=== PATIENT | female | born 1995 | race Caucasian/White ===

== ENCOUNTER → 2018-03-27 | Outpatient (REF) | payer MEDICARE, OTHER ==
[2018-03-27 14:06] LABS: APPEARANCE, URINE HAZY (CLEAR); BACTERIA, URINE AUTO 1+ (NEGATIVE); BILIRUBIN, URINE AUTO NEGATIVE (NEGATIVE); BLOOD, URINE BLOOD 2+ (NEGATIVE); COLOR, URINE YELLOW (YELLOW); GLUCOSE, URINE (UA) AUTO NEGATIVE (NEGATIVE); KETONE, URINE AUTO NEGATIVE (NEGATIVE); LEUKOCYTE ESTERASE, URINE AUTO 3+ (NEGATIVE); MUCUS, URINE SMALL (NEGATIVE); NITRITE, URINE AUTO NEGATIVE (NEGATIVE); PROTEIN, URINE AUTO NEGATIVE (NEGATIVE); RBC, URINE AUTO 35 /HPF (0-3); SPECIFIC GRAVITY URINE AUTO 1.016 (1.002-1.035); SQUAMOUS EPITHELIAL CELL UR AU 2 /HPF (0-6); UROBILINOGEN, URINE AUTO 0.2 mg/dL (0.0-2.0); WBC, URINE AUTO TNTC /HPF (0-3)
== END ==
LOC: M LAB REF 12:59
DX: N39.0 Urinary tract infection, site not specified (principal)
CPT/HCPCS: 81001

== ENCOUNTER 2018-06-24 16:36 | Emergency (ER) | payer OTHER ==
[2018-06-24] MEDS: KETOROLAC 30 MG/ML VIAL (J1885) IV (17:56)
[2018-06-24] MEDS: ONDANSETRON 4MG/2ML VIAL (J2405) IV (17:56)
[2018-06-24] MEDS: NS 1,000 ML IV (17:57)
[2018-06-24 18:08] LABS: ANION GAP 6 MEQ/L (8-16); BLOOD UREA NITROGEN 14 MG/DL (7-18); CALCIUM LEVEL 9.1 MG/DL (8.5-10.1); CARBON DIOXIDE LEVEL 29 MEQ/L (21-32); CHLORIDE LEVEL 110 MEQ/L (98-107); CREATININE FOR GFR 0.75 MG/DL (0.55-1.30); GLOMERULAR FILTRATION RATE > 60.0 (>60); GLUCOSE, FASTING 96 MG/DL (70-100); POTASSIUM SERUM 4.2 MEQ/L (3.5-5.1); SODIUM LEVEL 145 MEQ/L (136-145)
== END 2018-06-24 18:58 | disposition home or self-care (01) ==
LOC: M ED 16:36
DX: K52.9 Noninfective gastroenteritis and colitis, unspecified (principal); K21.9 Gastro-esophageal reflux disease without esophagitis; F32.9 Major depressive disorder, single episode, unspecified; M54.9 Dorsalgia, unspecified; Z79.899 Other long term (current) drug therapy
CPT/HCPCS: J2405

== ENCOUNTER → 2018-07-18 | Outpatient (REF) | payer OTHER ==
[2018-07-18 21:38] LABS: APPEARANCE, URINE HAZY (CLEAR); BACTERIA, URINE AUTO 1+ (NEGATIVE); BILIRUBIN, URINE AUTO NEGATIVE (NEGATIVE); BLOOD, URINE BLOOD NEGATIVE (NEGATIVE); COLOR, URINE YELLOW (YELLOW); GLUCOSE, URINE (UA) AUTO NEGATIVE (NEGATIVE); KETONE, URINE AUTO NEGATIVE (NEGATIVE); LEUKOCYTE ESTERASE, URINE AUTO 1+ (NEGATIVE); NITRITE, URINE AUTO POSITIVE (NEGATIVE); PROTEIN, URINE AUTO NEGATIVE (NEGATIVE); RBC, URINE AUTO 1 /HPF (0-3); SQUAMOUS EPITHELIAL CELL UR AU 1 /HPF (0-6); UROBILINOGEN, URINE AUTO 0.2 mg/dL (0.0-2.0); WBC, URINE AUTO 34 /HPF (0-3)
== END ==
LOC: M LAB REF 18:31
DX: N39.0 Urinary tract infection, site not specified (principal)

== ENCOUNTER → 2018-08-21 | Outpatient (REF) | payer OTHER ==
[2018-08-21 18:09] LABS: HEMATOCRIT 39.4 % (36.0-47.0); MEAN CORPUSCULAR HEMOGLOBIN 30.9 pg (27.0-33.0); MEAN CORPUSCULAR VOLUME 93.6 fl (80.0-96.0); PLATELET COUNT, AUTOMATED 233 10^3/uL (150-450); RED BLOOD COUNT 4.21 10^6/uL (4.00-5.40); WHITE BLOOD COUNT 7.7 10^3/uL (4.0-10.0)
[2018-08-21 18:42] LABS: HCG, SERUM QUANTITATIVE 8001 MIU/ML
[2018-08-22 11:31] LABS: RUBELLA IgG QUALITATIVE IMMUNE (IMMUNE)
[2018-08-22 11:59] LABS: HEPATITIS C VIRUS ABY INDEX 0.1 INDEX (<0.8)
[2018-08-22 12:00] LABS: HIV 1&2 SCREEN CENTAUR NEGATIVE (NEGATIVE)
[2018-08-22 14:01] LABS: HBsAg Prenatal NEGATIVE (NEGATIVE)
== END ==
LOC: M LAB REF 17:05
DX: O36.80X0 Pregnancy with inconclusive fetal viability, not applicable or unspecified (principal); Z32.01 Encounter for pregnancy test, result positive
CPT/HCPCS: 86762

== ENCOUNTER 2018-10-09 11:34 | Emergency (ER) | payer OTHER, MEDICAID ==
[~2018-10-09] VITALS: Ht 167.6 cm; Wt 61.8 kg
[~2018-10-09 11:34] MED LIST: ESCI10TA2; GABA-845; NUVAMIS2; OMEP40CA2; ZOFR4TAB14 PO
[2018-10-09] MEDS ORDERED: PRENTAB55 PO (11:40)
[2018-10-09] MEDS ORDERED: METOCLOPRAMIDE INJ 10MG/2ML VIAL (J2765) IV ONE (13:00)
[2018-10-09] MEDS ORDERED: NS 1,000 ML IV ONE (13:00)
[2018-10-09 13:30] LABS: BASO # 0.1 10^3/uL (0.0-0.2); BASO % 0.6 % (0.0-1.0); EOS # 0.2 10^3/uL (0.0-0.50); EOS % 1.8 % (0.0-3.0); HEMATOCRIT 35.7 % (36.0-47.0); HEMOGLOBIN 12.1 g/dl (12.0-15.5); LYMPH # 1.7 10^3/uL (1.5-6.5); LYMPH % 19.5 % (24.0-44.0); MEAN CORPUSCULAR HEMOGLOBIN 31.8 pg (27.0-33.0); MEAN CORPUSCULAR HGB CONC 33.9 g/dl (32.0-36.5); MEAN CORPUSCULAR VOLUME 93.9 fl (80.0-96.0); MONO # 0.5 10^3/uL (0.0-0.8); NEUTROPHILS # 6.1 10^3/uL (1.8-7.7); NEUTROPHILS % 71.7 % (36.0-66.0); PLATELET COUNT, AUTOMATED 195 10^3/uL (150-450); WHITE BLOOD COUNT 8.5 10^3/uL (4.0-10.0)
[2018-10-09 13:53] LABS: ALBUMIN 3.3 GM/DL (3.2-5.2); ALT/SGPT 11 U/L (12-78); BLOOD UREA NITROGEN 12 MG/DL (7-18); CALCIUM LEVEL 8.7 MG/DL (8.5-10.1); CARBON DIOXIDE LEVEL 22 MEQ/L (21-32); CHLORIDE LEVEL 107 MEQ/L (98-107); CREATININE FOR GFR 0.56 MG/DL (0.55-1.30); GLOMERULAR FILTRATION RATE > 60.0 (>60); GLUCOSE, FASTING 78 MG/DL (70-100); LIPASE 109 U/L (73-393); POTASSIUM SERUM 3.6 MEQ/L (3.5-5.1); SODIUM LEVEL 137 MEQ/L (136-145); TOTAL PROTEIN 6.8 GM/DL (6.4-8.2)
--- NOTE | 2018-10-09 14:49 | REP ---
Emergency first trimester obstetric sonography: History: Nausea vomiting diarrhea. Unable to get heart tones. Findings: Transabdominal scanning confirms the presence of a viable single intrauterine gestation. [place]-rump length of the embryonic pole is 68 mm. This corresponds to a 94-bcac-7-day gestational age estimate. heart rate is recorded at 152 beats per minute. No subchorionic hemorrhage is seen. motion is observed. An anterior placenta is seen without evidence of placenta previa. No extrauterine abnormalities observed. No gross anomaly. Impression: Viable single intrauterine gestation at 13 weeks 0 days by crown-rump length. ROGER by sonography April 16, 2019. No complication is identified. Electronically Signed by Jimi Olvera MD 10/09/2018 02:41 P
[2018-10-09] MEDS ORDERED: REGL10TA6 PO (14:50)
[2018-10-09] MEDS ORDERED: MACR100C43 PO (14:56)
[2018-10-09] MEDS ORDERED: NITROFURANTOIN (MACROBID) 100 MG CAP PO ONE (15:00)
[2018-10-09 15:07] VITALS: BP 109/55
== END 2018-10-09 15:18 | disposition home or self-care (01) ==
LOC: M ED 11:34
DX: O21.9 Vomiting of pregnancy, unspecified (principal); O23.41 Unspecified infection of urinary tract in pregnancy, first trimester; O99.611 Diseases of the digestive system complicating pregnancy, first trimester; K21.9 Gastro-esophageal reflux disease without esophagitis; O99.341 Other mental disorders complicating pregnancy, first trimester; F32.9 Major depressive disorder, single episode, unspecified; F41.9 Anxiety disorder, unspecified; Z3A.13 13 weeks gestation of pregnancy; Z79.899 Other long term (current) drug therapy
CPT/HCPCS: 76801; 80053; 81001; 83690; 85025; 87086; 96374; 99284; J2765

== ENCOUNTER → 2018-10-31 | Outpatient (REF) | payer OTHER, MEDICAID ==
[~2018-10-31] MED LIST changes: +MACR100C43 PO; +PRENTAB55 PO; +REGL10TA6 PO
[2018-10-31 15:43] LABS: CHLAMYDIA DNA AMPLIFICATION NEGATIVE (NEGATIVE); GC DNA AMPLIFICATION NEGATIVE (NEGATIVE)
== END ==
LOC: M LAB REF 13:03
PROVIDERS: ATTEND Advanced Practice Midwife
DX: Z34.82 Encounter for supervision of other normal pregnancy, second trimester (principal); Z3A.00 Weeks of gestation of pregnancy not specified

== ENCOUNTER → 2018-11-16 | Outpatient (CLI) | payer OTHER, MEDICAID ==
--- NOTE | 2018-11-16 19:06 | REP ---
Obstetric ultrasound for anatomy: There is a single intrauterine gestation in a breech presentation. There is movement and cardiac activity. The heart rate is 144 beats minute. The placenta is anterior. There is no placenta previa or abruptio. The placenta is grade zero. The amniotic fluid volume subjectively is normal. The cervix measures 4.3 cm length. Gestational age by today's ultrasound is 18 weeks 2 days/ROGER 04/17/2019. Gestational age by the first ultrasound is 18 weeks 3 days/ROGER 04/16/2019. Gestational age by LMP is 18 weeks 3 days/ROGER 04/16/2019. weight is 232 grams/0 pounds, 8 ounces. This is the 42nd percentile for 18 weeks 3 days. The following anatomic structures are identified and are unremarkable: Cavum septum pellucidum, cerebellum, upper lip, diaphragm, stomach, cord insertion, three-vessel cord, kidneys, bladder and upper lower extremities. There is a cyst in the right choroid plexus and the cyst in the left choroid plexus. Suboptimally demonstrated because of position are the facial profile, face, lungs, four-chamber view of the heart, cardiac right and left ventricular outflow tracts and the sacral portion of the spine. A followup study dedicated to these structures might be considered. Electronically Signed by Chris Watkins MD 11/16/2018 06:58 P
== END ==
LOC: M RAD 15:49
PROVIDERS: ATTEND Advanced Practice Midwife
DX: Z36.89 Encounter for other specified antenatal screening (principal); O99.89 Other specified diseases and conditions complicating pregnancy, childbirth and the puerperium; G93.0 Cerebral cysts; Z3A.18 18 weeks gestation of pregnancy

== ENCOUNTER → 2018-11-24 | Outpatient (REF) | payer OTHER, MEDICAID ==
[2018-11-24 14:03] LABS: AMORPHOUS SEDIMENT SMALL (NEGATIVE); APPEARANCE, URINE CLOUDY (CLEAR); BACTERIA, URINE AUTO NEGATIVE (NEGATIVE); BILIRUBIN, URINE AUTO NEGATIVE (NEGATIVE); BLOOD, URINE BLOOD NEGATIVE (NEGATIVE); COLOR, URINE YELLOW (YELLOW); GLUCOSE, URINE (UA) AUTO NEGATIVE (NEGATIVE); KETONE, URINE AUTO NEGATIVE (NEGATIVE); LEUKOCYTE ESTERASE, URINE AUTO 2+ (NEGATIVE); MUCUS, URINE SMALL (NEGATIVE); NITRITE, URINE AUTO NEGATIVE (NEGATIVE); PROTEIN, URINE AUTO NEGATIVE (NEGATIVE); RBC, URINE AUTO 2 /HPF (0-3); SPECIFIC GRAVITY URINE AUTO 1.018 (1.002-1.035); SQUAMOUS EPITHELIAL CELL UR AU 9 /HPF (0-6); WBC, URINE AUTO 3 /HPF (0-3)
== END ==
LOC: M LAB REF 13:25
PROVIDERS: ATTEND Obstetrics & Gynecology
DX: N39.0 Urinary tract infection, site not specified (principal)

== ENCOUNTER → 2018-12-07 | Outpatient (CLI) | payer OTHER, MEDICAID ==
--- NOTE | 2018-12-08 09:08 | REP ---
Obstetric ultrasound for follow-up of anatomy: On the prior study dated 11/16/2018 the following anatomic structures cannot be identified because of position: Facial profile, face, lungs, four-chamber view of the heart, cardiac right and left ventricular outflow tracts and sacral portion of the spine. On the study today the facial profile, face, upper lip, lungs, four-chamber view of the heart, cardiac right and left ventricular outflow tracts, and sacral portion of the spine are all adequately demonstrated and are unremarkable. The previous choroid plexus cysts have resolved. The remainder of the anatomy today is unremarkable and unchanged from the prior study. There are no anomalies. There is a single intrauterine gestation in a transverse lie with the head to the maternal left and then changing to a breech presentation. There is motion and cardiac activity. The heart rate is 160 beats per minute. The placenta is anterior. There is no placenta previa or abruptio. The placenta is grade 1 maturity. The amniotic fluid volume subjectively is normal. The cervix measures 3.3 cm length. By today's ultrasound the gestational age is 20-week 6 days/ROGER 04/20/2019. By the first ultrasound gestational age is 21 weeks 3 days/ROGER 04/16/2019. By LMP gestational age is 21 weeks 3 days/ROGER 04/16/2019. weight is 390 grams/0 pounds, 13 ounces. This is the 32nd percentile for 21 weeks 3 days. Electronically Signed by Chris Watkins MD 12/08/2018 09:00 A
== END ==
LOC: M RAD 17:31
PROVIDERS: ATTEND Advanced Practice Midwife
DX: O32.2XX0 Maternal care for transverse and oblique lie, not applicable or unspecified (principal); Z36.2 Encounter for other antenatal screening follow-up; Z3A.21 21 weeks gestation of pregnancy

== ENCOUNTER → 2018-12-24 | Outpatient (REF) | payer OTHER, MEDICAID ==
[2018-12-24 16:25] LABS: INFLUENZA A AMPLIFICATION NEGATIVE (NEGATIVE); INFLUENZA B AMPLIFICATION NEGATIVE (NEGATIVE)
== END ==
LOC: M LAB REF 15:04
PROVIDERS: ATTEND Physician Assistant
DX: J11.1 Influenza due to unidentified influenza virus with other respiratory manifestations (principal)

== ENCOUNTER → 2019-01-25 | Outpatient (CLI) | payer OTHER, MEDICAID ==
[2019-01-25 13:12] LABS: HEMATOCRIT 31.5 % (36.0-47.0); HEMOGLOBIN 10.7 g/dl (12.0-15.5); MEAN CORPUSCULAR HEMOGLOBIN 32.7 pg (27.0-33.0); MEAN CORPUSCULAR VOLUME 96.3 fl (80.0-96.0); PLATELET COUNT, AUTOMATED 198 10^3/uL (150-450); RED BLOOD COUNT 3.27 10^6/uL (4.00-5.40); WHITE BLOOD COUNT 12.6 10^3/uL (4.0-10.0)
== END ==
LOC: M SMT 10:51
PROVIDERS: ATTEND Advanced Practice Midwife
DX: Z34.82 Encounter for supervision of other normal pregnancy, second trimester (principal); Z3A.00 Weeks of gestation of pregnancy not specified

== ENCOUNTER → 2019-02-27 | Outpatient (CLI) | payer OTHER, MEDICAID ==
--- NOTE | 2019-02-27 10:38 | REP ---
REASON: Growth and placenta assessment. Multiple ultrasonographic image of the gravid uterus show a single living intrauterine gestation in the cephalic presentation. Doppler interrogation of the heart shows the heart rate of 134 beats per minute. The placenta is anterior and not low-lying. There is no evidence of a placental or pramod-placental abnormality. The placenta has an ultrasonographic appearance of grade 2. The subjective amniotic fluid volume is within normal limits. The cervix measures 4.2 cm in length and is closed. Evaluation of the maternal adnexal spaces showed no abnormalities. Doppler interrogation of the umbilical cord shows an A/B ratio of 2.48. This is within the normal range. The calculated amniotic fluid index is 18.6 with an expected range 8.3 to 24.5. BPD 8.9 cm = 35 weeks 6 days HC 31.0 cm = 34 weeks 5 days AC 29.5 cm = 33 weeks 4 days FL 6.1 cm = 31 weeks 4 days The estimated weight is 2168 grams, which is at the 49th percentile for a 46-kued-1-day gestational age. Full anatomical screening was performed on a prior exam. IMPRESSION: Single living intrauterine gestation as described above with an estimated gestational age of 33 weeks 6 days via composite criteria and an estimated date of delivery of 04/11/2019 by today's exam. Electronically Signed by Wilfredo Hoffman DO 02/27/2019 10:48 A
[2019-02-27 11:57] LABS: CHLAMYDIA DNA AMPLIFICATION NEGATIVE (NEGATIVE); GC DNA AMPLIFICATION NEGATIVE (NEGATIVE)
== END ==
LOC: M RAD 09:22
PROVIDERS: ATTEND Advanced Practice Midwife
DX: Z34.83 Encounter for supervision of other normal pregnancy, third trimester (principal); Z3A.33 33 weeks gestation of pregnancy
CPT/HCPCS: 76816; 76820; 87491; 87591; G0123

== ENCOUNTER → 2019-03-20 | Outpatient (REF) | payer OTHER, MEDICAID ==
[~2019-03-20] MED LIST changes: +ACET-683 PO; +CLAR10CA3 PO; +IBUP80TA PO; +LEXA1TAB PO; +OMEP40CA2 PO; +TUMS500C PO
== END ==
LOC: M LAB REF 16:56
PROVIDERS: ATTEND Advanced Practice Midwife
DX: Z34.83 Encounter for supervision of other normal pregnancy, third trimester (principal); Z3A.00 Weeks of gestation of pregnancy not specified

== ENCOUNTER 2019-03-26 17:42 | Inpatient (IN) | payer OTHER, MEDICAID ==
[~2019-03-26] VITALS: Ht 167.6 cm; Wt 68.9 kg
[~2019-03-26 17:42] MED LIST changes: -ACET-683 PO; -CLAR10CA3 PO; -IBUP80TA PO; -LEXA1TAB PO; -OMEP40CA2 PO; -TUMS500C PO
[2019-03-26 17:56] VITALS: BP 124/63
[2019-03-26] MEDS ORDERED: PENICILLIN G POTASSIUM IV 5 MU in D5W MINI-BAG PLUS 100 ML IV STA (18:06)
[2019-03-26] MEDS ORDERED: LACTATED RINGER'S 1000 ML IV STA (18:06)
[2019-03-26] MEDS ORDERED: TUMS500C PO (18:07)
[2019-03-26] MEDS ORDERED: CLAR10CA3 PO (18:07)
[2019-03-26] MEDS ORDERED: LEXA1TAB PO (18:07)
[2019-03-26] MEDS ORDERED: OMEP40CA2 PO (18:07)
[2019-03-26 18:33] VITALS: BP 126/72
[2019-03-26 18:35] LABS: HEMATOCRIT 31.2 % (36.0-47.0); HEMOGLOBIN 10.5 g/dl (12.0-15.5); MEAN CORPUSCULAR HEMOGLOBIN 30.9 pg (27.0-33.0); MEAN CORPUSCULAR HGB CONC 33.7 g/dl (32.0-36.5); MEAN CORPUSCULAR VOLUME 91.8 fl (80.0-96.0); PLATELET COUNT, AUTOMATED 216 10^3/uL (150-450); WHITE BLOOD COUNT 14.8 10^3/uL (4.0-10.0)
[2019-03-26] MEDS ORDERED: FENTANYL 2MCG/ML ROPIVACAINE 0.2% IN 0.9% NACL 100ML IVBAG As Ordered ONE (18:39)
[2019-03-26 18:56] VITALS: BP 116/65
--- NOTE | 2019-03-26 19:52 | HPE ---
DATE OF ADMISSION: 03/26/2019 Patient is a 23-year-old female who is a 2, para 0-0-1-0 at 37 weeks gestation with an estimated date of confinement (EDC) of 04/16/2019 based off of her last menstrual period (LMP) and consistent with her first-trimester ultrasound. Patient initiated care in her first trimester with [facility]. Patient's has been complicated by depression, which she is taking Lexapro 10 mg for. She presents to labor and delivery with complaints of contractions every 3 minutes. She reports active movement. She denies leaking of fluid or vaginal bleeding. PAST MEDICAL HISTORY: 1. Gastroesophageal reflux disease (GERD). 2. Anxiety. SURGICAL HISTORY: Tonsillectomy. FAMILY HISTORY: Lung cancer and Alzheimer's. SOCIAL HISTORY: She is currently a student in college. She is . The father of the baby and her are together. She has no history of abuse. Patient denies any history of ever being a smoker, illicit drug use, or alcohol use or abuse. PAST PREGNANCIES: In 2010, she had a termination. LABORATORIES: Blood type is A positive with an antibody screen that is negative. Her hemoglobin and hematocrit in her first trimester were 13.0 and 39.4 with platelets of 233. Rubella is immune. Her VDRL is nonreactive. Her urine screen had no growth. Hepatitis B surface antigen is negative. HIV is negative. Gonorrhea and chlamydia are negative. Hepatitis C is nonreactive. She had a panorama done, which is NIPT testing, that showed a female, low risk for aneuploidy screening. Her 1-hour glucose tolerance test was 111 with a hemoglobin and hematocrit of 10.7 and 31.5 with platelets of 198. Her GBS is positive. ALLERGIES: No known drug allergies. CURRENT MEDICATIONS: - vitamins - Lexapro 10 mg - omeprazole 40 mg - Claritin 10 mg PHYSICAL EXAMINATION: GENERAL: Alert and oriented times three. RESPIRATORY: Regular rate with no use of accessory muscles. ABDOMEN: Gravid. Palpates mild with contractions. Cephalic presentation of the fetus noted via Milo's maneuver and vaginal exam. LOWER EXTREMITIES: Generalized edema. No clonus. heart rate 130, moderate variability. Positive accelerations. No decelerations. Contractions are every 3-4 minutes. Sterile vaginal exam: 4/100/-1, anterior, scant show. VITAL SIGNS: Blood pressure 126/72, heart rate 82, respiratory rate 18, temperature 98.1. ASSESSMENT: Intrauterine (IUP) at 37 weeks gestation, GBS positive, active labor, category 1 heart rate tracing. PLAN: Admit patient to labor and delivery. Labs and IV per unit protocol. Lactated Ringer's 800 mL bolus prior to epidural. Anesthesia consult per patient's request. Clear liquid diet. Anticipate cervical change and spontaneous vaginal delivery.
[2019-03-26] MEDS ORDERED: OXYTOCIN 30 UNITS IN 0.9% NaCl 500ML IV BAG (J2590) As Ordered ONE (20:18)
[2019-03-26] MEDS ORDERED: LR 1,000 ML IV SCH (20:18)
--- NOTE | 2019-03-26 20:21 | IPNPDOC ---
Obstetrical Progress Note Date of Service Mar 26, 2019 Subjective Patient reports she is more comfortable with her epidural. Objective Vital Signs Date Time Temp Pulse Resp B/P (MAP) Pulse Ox O2 Delivery O2 Flow Rate FiO2 03/26/19 18:56 84 18 116/65 (82) 100 03/26/19 18:33 98.1 Assessment Heart Rate (FHR): 135 Variability: Moderate Accelerations: Positive Decelerations: None Heart Rate Tracing: Category I Tocometer Contractions: Yes Frequency: every 2-5 min. Sterile Vaginal Examination Dilation: 5 cm Effacement (%): 100% Station: -1 Postion/Presentation: Cephalic presentation Assessment and Plan Status: Reassuring Group B Streptococcus: Positive Anticipate: Vaginal Delivery Additional Comments IV Pitocin to be started after discussing with patient. She and SO agree with plan. Order for IV Pitocin to be started. ERASMO LABOY CNM Mar 26, 2019 20:21
[2019-03-26] MEDS ORDERED: OXYTOCIN DRIP 30 UNITS in APPROPRIATE DILUENT 1 EA IV SCH (20:30)
[2019-03-26] MEDS ORDERED: REFRIGERATOR IV KEYS XX PRN (20:45)
[2019-03-26] MEDS ORDERED: ONDANSETRON 4MG/2ML VIAL (J2405) IV PRN (20:45)
[2019-03-26] MEDS ORDERED: diphenhydrAMINE INJ 50MG/ML VIAL (J1200) IV PRN (20:45)
[2019-03-26] MEDS ORDERED: LACTATED RINGER'S 1000 ML IV PRN (20:45)
[2019-03-26] MEDS ORDERED: ePHEDrine SULFATE 25 MG/5 ML(5MG/ML) SYRINGE IV PRN (20:45)
[2019-03-26] MEDS ORDERED: FENTANYL/ROPIVACAINE/NACL BAG 100 ML EPIDURAL SCH (20:45)
[2019-03-26] MEDS ORDERED: NALOXONE INJ 0.4 MG/1 ML VIAL (J2310) IV PRN (20:45)
[2019-03-26] MEDS ORDERED: EPIDURAL/PCA KEYS XX PRN (20:45)
[2019-03-26] MEDS ORDERED: EPIDURAL COMMENT XX SCH (20:45)
[2019-03-26] MEDS ORDERED: PENICILLIN G POTASSIUM IV 2.5 MU in APPROPRIATE DILUENT 1 EA IV SCH (23:00)
[2019-03-27] MEDS ORDERED: OXYTOCIN DRIP 30 UNITS in APPROPRIATE DILUENT 1 EA IV SCH (07:08)
[2019-03-27] MEDS ORDERED: METHYLERGONOVINE MALEATE 0.2 MG TAB PO PRN (07:15)
[2019-03-27] MEDS ORDERED: DIBUCAINE 1% OINTMENT 30GM TOP PRN (07:15)
[2019-03-27] MEDS ORDERED: RHOGAM 300 MCG (1500 IU) INJ (J2790) IM SCH (07:15)
[2019-03-27] MEDS ORDERED: ACETAMINOPHEN 500 MG TAB PO PRN (07:15)
[2019-03-27] MEDS ORDERED: ANUSOL HC CREAM 30GM TOP PRN (07:15)
[2019-03-27] MEDS ORDERED: IBUPROFEN 800 MG TAB PO PRN (07:15)
[2019-03-27] MEDS ORDERED: MEASLES,MUMPS,RUBELLA VACCINE INJ (MMR-II) (90707) SC SCH (07:15)
[2019-03-27] MEDS ORDERED: DOCUSATE SODIUM 100 MG CAP PO PRN (07:15)
[2019-03-27] MEDS ORDERED: ACETAMINOPHEN TAB 650MG DOSE (2X325MG) PO PRN (07:15)
[2019-03-27] MEDS: IBUPROFEN 600 MG TAB PO PRN ×2 (07:58→14:38)
[2019-03-27 08:55] VITALS: BP 113/59
[2019-03-27] MEDS: PRENATAL VITAMINS CHEWABLE TABLET PO SCH (09:00)
--- NOTE | 2019-03-27 11:16 | DN ---
DATE OF DELIVERY: 03/27/2019 TIME: 0551 hours STATUS: Delivered, spontaneous vaginal delivery. ANESTHESIA: Epidural. PROVIDER: Angelica Franco CNM, [facility] ESTIMATED BLOOD LOSS: 500 mL. FINDINGS: Female, 6 pounds 1 ounce, 2740 grams, scores 9 and 9, nuchal times one tight and cord around the body. The patient is a 23-year-old female, who is now a 2, para 1-0-1-1 at 37 weeks 1 day gestation who presented to labor and delivery in active labor. She received an epidural for pain management. She progressed to fully dilated at 0431 hours and pushed to a living female at 0551 hours in the CONCHIS position with restitution to LOT. A nuchal cord times one tight was noted. The anterior shoulder delivered with ease and the corpus immediately followed. The baby was placed on the maternal abdomen, active and crying with stimulation. The cord was clamped times two after pulsations ceased and cut by the father of the baby. The placenta delivered spontaneously and was intact at 0605 hours. Uterine hemostasis was achieved via rapid infusion of IV Pitocin and fundal massage. The perineum, cervix, vagina were inspected and found to have a left labial laceration one-third of the anterior and extended into a left vaginal wall laceration. This was repaired with a 3-[address]-1 and a 4-0 Vicryl Rapide RB-1. Mother plans on breast feeding and breast fed in the room successfully. Mother is naming her baby Mile. Both mother and baby are in stable condition. All counts of instruments, sutures and sponges were correct. [facility]
[2019-03-27] MEDS ORDERED: OMEPRAZOLE 20 MG CAP PO SCH (17:00)
[2019-03-27] MEDS ORDERED: ESCITALOPRAM OXALATE 10 MG TAB (LEXAPRO) PO SCH (17:00)
[2019-03-27 18:05] VITALS: BP 115/64
[2019-03-28 06:53] VITALS: BP 113/65
[2019-03-28] MEDS ORDERED: ACET-683 PO (07:04)
[2019-03-28] MEDS ORDERED: IBUP80TA PO (07:04)
[2019-03-28] MEDS: PRENATAL VITAMINS CHEWABLE TABLET PO SCH (08:06)
[2019-03-28] MEDS: IBUPROFEN 600 MG TAB PO PRN (08:07)
== END 2019-03-28 10:50 | disposition home or self-care (01) | DRG 807 ==
LOC: M LDO 17:42 → M LDI 18:07 → M OBS 03-27 08:45
PROVIDERS: ADMIT Advanced Practice Midwife; ATTEND Advanced Practice Midwife
PROC: 10E0XZZ Delivery of Products of Conception, External Approach (ICD-10-PCS; principal; 2019-03-27)
PROC: 0HQ9XZZ Repair Perineum Skin, External Approach (ICD-10-PCS; 2019-03-27)
DX: O70.0 First degree perineal laceration during delivery (principal); Z37.0 Single live birth; Z3A.37 37 weeks gestation of pregnancy; F32.9 Major depressive disorder, single episode, unspecified; O99.820 Streptococcus B carrier state complicating pregnancy; O99.344 Other mental disorders complicating childbirth; O69.89X0 Labor and delivery complicated by other cord complications, not applicable or unspecified

== ENCOUNTER → 2020-03-27 | Outpatient (REF) | payer OTHER ==
[~2020-03-27] MED LIST changes: +ACET-683 PO; +CLAR10CA3 PO; +IBUP80TA PO; +LEXA1TAB PO; -OMEP40CA2; +OMEP40CA97; +OMEP40CA97 PO; +TUMS500C PO
== END ==
LOC: M LAB REF 16:39
PROVIDERS: ATTEND Physician Assistant
DX: R30.0 Dysuria (principal)

== ENCOUNTER → 2020-09-03 | Outpatient (CLI) | payer SELFPAY | LOC: M LABSMTC 12:18 | PROVIDERS: ATTEND Pediatrics | DX: Z20.828 Contact with and (suspected) exposure to other viral communicable diseases (principal) ==

== ENCOUNTER → 2021-01-13 | Outpatient (REF) | payer OTHER ==
[~2021-01-13] MED LIST changes: +ESCI10TA16; -ESCI10TA2; +ONDA-83; +ONDA4TAB6 PO
[2021-01-13 13:54] LABS: HEMATOCRIT 42.2 % (36.0-47.0); HEMOGLOBIN 13.9 g/dl (12.0-15.5); MEAN CORPUSCULAR HEMOGLOBIN 31.4 pg (27.0-33.0); MEAN CORPUSCULAR HGB CONC 32.9 g/dl (32.0-36.5); MEAN CORPUSCULAR VOLUME 95.5 fl (80.0-96.0); PLATELET COUNT, AUTOMATED 215 10^3/uL (150-450); RED BLOOD COUNT 4.42 10^6/uL (4.00-5.40); WHITE BLOOD COUNT 10.1 10^3/uL (4.0-10.0)
[2021-01-13 16:38] LABS: CHLAMYDIA DNA AMPLIFICATION NEGATIVE (NEGATIVE); GC DNA AMPLIFICATION NEGATIVE (NEGATIVE)
[2021-01-15 09:15] LABS: HIV 1&2 SCREEN CENTAUR NEGATIVE (NEGATIVE)
== END ==
LOC: M PLALAB 11:51
PROVIDERS: ATTEND Advanced Practice Midwife
DX: Z34.81 Encounter for supervision of other normal pregnancy, first trimester (principal)

== ENCOUNTER 2021-01-15 19:24 | Emergency (ER) | payer OTHER ==
[~2021-01-15] VITALS: Ht 167.6 cm; Wt 65.0 kg
[~2021-01-15 19:24] MED LIST changes: -ONDA-83; -ONDA4TAB6 PO
[2021-01-15] MEDS ORDERED: ONDA-83 (19:31)
[2021-01-15] MEDS ORDERED: NS 1,000 ML IV ONE (21:05)
[2021-01-15] MEDS ORDERED: ONDANSETRON 4MG/2ML VIAL IV ONE (21:05)
[2021-01-15 21:23] LABS: BASO # 0.1 10^3/uL (0.0-0.2); BASO % 0.4 % (0.0-1.0); EOS % 0.3 % (0.0-3.0); LYMPH # 2.1 10^3/uL (1.5-5.0); LYMPH % 14.6 % (24.0-44.0); MEAN CORPUSCULAR HEMOGLOBIN 31.4 pg (27.0-33.0); MEAN CORPUSCULAR HGB CONC 33.3 g/dl (32.0-36.5); MEAN CORPUSCULAR VOLUME 94.2 fl (80.0-96.0); MONO # 0.8 10^3/uL (0.0-0.8); MONO % 5.3 % (2.0-8.0); NEUTROPHILS # 11.2 10^3/uL (1.5-8.5); NEUTROPHILS % 78.8 % (36.0-66.0); PLATELET COUNT, AUTOMATED 226 10^3/uL (150-450); RED BLOOD COUNT 4.46 10^6/uL (4.00-5.40); WHITE BLOOD COUNT 14.1 10^3/uL (4.0-10.0)
[2021-01-15] MEDS ORDERED: ONDA4TAB6 PO (22:23)
[2021-01-15 22:39] VITALS: BP 122/67
== END 2021-01-15 22:41 | disposition home or self-care (01) ==
LOC: M ED 19:24
DX: O21.9 Vomiting of pregnancy, unspecified (principal); O99.619 Diseases of the digestive system complicating pregnancy, unspecified trimester; Z79.899 Other long term (current) drug therapy
CPT/HCPCS: 80047; 84702; 85025; 96361; 96374; 99284; J2405

== ENCOUNTER → 2021-03-26 | Outpatient (CLI) | payer OTHER ==
[~2021-03-26] MED LIST changes: +GABA-283; -GABA-845; +OMEP40CA4; +OMEP40CA4 PO; -OMEP40CA97; -OMEP40CA97 PO; +ONDA-83; +ONDA4TAB6 PO
--- NOTE | 2021-03-26 14:43 | REP ---
INDICATION: ANATOMY. COMPARISON: None. TECHNIQUE: Transabdominal imaging FINDINGS: Multiple ultrasonographic images of the gravid uterus shows a single living intrauterine gestation in the valery breech presentation. Doppler interrogation of the heart shows a heart rate of 134 beats per minute. The placenta is posterior and not low-lying. The cervix measures 3.3 cm in length and is closed. The subjective amniotic fluid volume is within normal limits. BPD: 4.3 cm 18 weeks 6 days HC: 16.6 cm 19 weeks 2 days AC: 14.3 cm 19 weeks 5 days FL: 2.9 cm 18 weeks 5 days The estimated weight is 280 g. No percentile was calculated. anatomical structures seen to be unremarkable are as follows: [place], cavum septum pellucidum, cerebellum, cisterna magna, cerebral ventricles,spine, kidneys, stomach, cord insertion, three-vessel umbilical cord,, upper lip, four-chamber heart, right and left ventricular outflow tracts, and upper lower extremities. Impression IMPRESSION: Single living intrauterine gestation as described above with an estimated gestational age of 19 weeks 0 days via composite criteria and an estimated date of delivery of 08/20/2021 by today's exam. No anomalies were detected. <Electronically signed by Wilfredo Hoffman > 03/26/21 [id number]
== END ==
LOC: M RAD 12:50
PROVIDERS: ATTEND Advanced Practice Midwife
DX: O99.342 Other mental disorders complicating pregnancy, second trimester (principal); O32.1XX0 Maternal care for breech presentation, not applicable or unspecified; Z3A.19 19 weeks gestation of pregnancy

== ENCOUNTER → 2021-05-26 | Outpatient (CLI) | payer OTHER ==
[2021-05-26 13:33] LABS: HEMATOCRIT 33.2 % (36.0-47.0); HEMOGLOBIN 10.9 g/dl (12.0-15.5); MEAN CORPUSCULAR HEMOGLOBIN 31.8 pg (27.0-33.0); MEAN CORPUSCULAR HGB CONC 32.8 g/dl (32.0-36.5); MEAN CORPUSCULAR VOLUME 96.8 fl (80.0-96.0); PLATELET COUNT, AUTOMATED 194 10^3/uL (150-450); RED BLOOD COUNT 3.43 10^6/uL (4.00-5.40); WHITE BLOOD COUNT 10.8 10^3/uL (4.0-10.0)
== END ==
LOC: M PLALAB 10:30
PROVIDERS: ATTEND Advanced Practice Midwife
DX: O99.342 Other mental disorders complicating pregnancy, second trimester (principal)

== ENCOUNTER → 2021-07-21 | Outpatient (REF) | payer OTHER, BC | LOC: M SFHCWAGY 17:09 | PROVIDERS: ATTEND Advanced Practice Midwife | DX: O99.343 Other mental disorders complicating pregnancy, third trimester (principal); Z36.85 Encounter for antenatal screening for Streptococcus B ==

== ENCOUNTER 2021-08-14 13:35 | Inpatient (IN) | payer BC ==
[2021-08-14] VITALS (27 sets, daily range): BP systolic 106–148; BP diastolic 57–85
[~2021-08-14] VITALS: Ht 167.6 cm; Wt 74.4 kg
[2021-08-14] MEDS ORDERED: TUMS750C5 PO (14:00)
[2021-08-14] MEDS ORDERED: SERT25TA85 PO (14:00)
[2021-08-14] MEDS ORDERED: HOME MED LIST COMPLETE! XX SCH (14:00)
[2021-08-14] MEDS ORDERED: PENICILLIN G POTASSIUM IV 5 MU in D5W MINI-BAG PLUS 100 ML IV STA (14:18)
[2021-08-14] MEDS ORDERED: OXYTOCIN DRIP 30 UNITS in IV 1 EA IV PRN (14:20)
[2021-08-14] MEDS ORDERED: METHYLERGONOVINE MALEATE 0.2 MG/ML VIAL (J2210) IM PRN ×2 (14:20→20:10)
[2021-08-14] MEDS ORDERED: LIDOCAINE 1% MDV 20ML VIAL INFIL PRN (14:20)
[2021-08-14] MEDS ORDERED: CARBOPROST TROMETHAMINE 250 MCG/ML AMP IM PRN (14:20)
[2021-08-14] MEDS ORDERED: TRANEXAMIC ACID INJection 1,000 MG in NS 100 ML IV PRN (14:20)
[2021-08-14 14:47] LABS: HEMATOCRIT 32.7 % (36.0-47.0); HEMOGLOBIN 10.4 g/dl (12.0-15.5); MEAN CORPUSCULAR HEMOGLOBIN 26.7 pg (27.0-33.0); MEAN CORPUSCULAR HGB CONC 31.8 g/dl (32.0-36.5); MEAN CORPUSCULAR VOLUME 83.8 fl (80.0-96.0); PLATELET COUNT, AUTOMATED 221 10^3/uL (150-450); WHITE BLOOD COUNT 13.3 10^3/uL (4.0-10.0)
[2021-08-14] MEDS ORDERED: LR 1,000 ML IV SCH ×2 (14:55→16:50)
[2021-08-14] MEDS ORDERED: ONDANSETRON 4MG/2ML VIAL IV PRN ×2 (15:15→17:35)
[2021-08-14] MEDS ORDERED: LACTATED RINGER'S 1000 ML IV ONE (16:50)
[2021-08-14] MEDS ORDERED: FENTANYL 2MCG/ML ROPIVACAINE 0.2% IN 0.9% NACL 100ML IVBAG As Ordered ONE (16:59)
[2021-08-14] MEDS ORDERED: NALOXONE INJ 0.4MG/1ML VIAL (J2310 PER 1MG) IV PRN (17:35)
[2021-08-14] MEDS ORDERED: EPIDURAL/PCA KEYS XX PRN (17:35)
[2021-08-14] MEDS ORDERED: FENTANYL/ROPIVACAINE/NACL BAG 100 ML EPIDURAL SCH (17:35)
[2021-08-14] MEDS ORDERED: REFRIGERATOR IV KEYS XX PRN (17:35)
[2021-08-14] MEDS ORDERED: LACTATED RINGER'S 1000 ML IV PRN (17:35)
[2021-08-14] MEDS ORDERED: ePHEDrine SULFATE 25 MG/5 ML(5MG/ML) SYRINGE IV PRN (17:35)
[2021-08-14] MEDS ORDERED: EPIDURAL COMMENT XX SCH (17:35)
[2021-08-14] MEDS ORDERED: diphenhydrAMINE 50MG/ML VIAL (J1200) IV PRN (17:35)
[2021-08-14] MEDS ORDERED: PENICILLIN G POTASSIUM IV 2.5 MU in IV 1 EA IV SCH (19:00)
[2021-08-14] MEDS ORDERED: MEASLES,MUMPS,RUBELLA VACCINE INJ (MMR-II) (90707) SC SCH (20:10)
[2021-08-14] MEDS ORDERED: ANUSOL HC CREAM 30GM TOP PRN (20:10)
[2021-08-14] MEDS ORDERED: ACETAMINOPHEN 500 MG TAB PO PRN (20:10)
[2021-08-14] MEDS ORDERED: METHYLERGONOVINE MALEATE 0.2 MG TAB PO PRN (20:10)
[2021-08-14] MEDS ORDERED: RHOGAM 300 MCG (1500 IU) INJ (J2790) IM SCH (20:10)
[2021-08-14] MEDS ORDERED: DIBUCAINE 1% OINTMENT 30GM TOP PRN (20:10)
[2021-08-14] MEDS ORDERED: ACETAMINOPHEN TAB 650MG DOSE (2X325MG) PO PRN (20:10)
[2021-08-14] MEDS ORDERED: IBUPROFEN 800 MG TAB PO PRN (20:10)
[2021-08-14] MEDS ORDERED: DOCUSATE SODIUM 100MG CAPSULE PO PRN (20:10)
[2021-08-14] MEDS: IBUPROFEN 600MG TAB PO PRN (23:48)
[2021-08-15 06:00] VITALS: BP 102/59
[2021-08-15] MEDS: SERTRALINE HCL 25 MG TABLET PO SCH (08:21)
[2021-08-15] MEDS: IBUPROFEN 600MG TAB PO PRN (08:22)
[2021-08-15] MEDS: PRENATAL VITAMINS CHEWABLE TABLET PO SCH (08:22)
[2021-08-15 17:58] VITALS: BP 115/56
[2021-08-16 06:00] VITALS: BP 118/63
[2021-08-16] MEDS: PRENATAL VITAMINS CHEWABLE TABLET PO SCH (09:19)
[2021-08-16] MEDS: SERTRALINE HCL 25 MG TABLET PO SCH (09:21)
[2021-08-16] MEDS ORDERED: IBUP80TA PO (09:45)
[2021-08-16] MEDS ORDERED: ACET-683 PO (09:45)
== END 2021-08-16 13:42 | disposition home or self-care (01) | DRG 560 ==
LOC: M LDO 13:35 → M LDI 14:29 → M OBS 22:15
PROVIDERS: ADMIT Advanced Practice Midwife; ATTEND Advanced Practice Midwife
PROC: 10E0XZZ Delivery of Products of Conception, External Approach (ICD-10-PCS; principal; 2021-08-14)
PROC: 0HQ9XZZ Repair Perineum Skin, External Approach (ICD-10-PCS; 2021-08-14)
DX: O70.0 First degree perineal laceration during delivery (principal); Z37.0 Single live birth; Z3A.39 39 weeks gestation of pregnancy; O99.824 Streptococcus B carrier state complicating childbirth

== ENCOUNTER → 2022-07-19 | Outpatient (CLI) | payer BC ==
[~2022-07-19] MED LIST changes: +SERT25TA85 PO; +TUMS750C5 PO
[2022-07-19 17:18] LABS: BASO # 0.1 10^3/uL (0.0-0.2); BASO % 0.9 % (0.0-1.0); EOS # 0.2 10^3/uL (0.0-0.5); EOS % 3.3 % (0.0-3.0); HEMATOCRIT 36.9 % (36.0-47.0); HEMOGLOBIN 11.6 g/dl (12.0-15.5); LYMPH # 1.7 10^3/uL (1.5-5.0); LYMPH % 29.3 % (24.0-44.0); MEAN CORPUSCULAR HEMOGLOBIN 27.8 pg (27.0-33.0); MEAN CORPUSCULAR HGB CONC 31.4 g/dl (32.0-36.5); MEAN CORPUSCULAR VOLUME 88.3 fl (80.0-96.0); MONO # 0.5 10^3/uL (0.0-0.8); NEUTROPHILS # 3.3 10^3/uL (1.5-8.5); NEUTROPHILS % 57.3 % (36.0-66.0); PLATELET COUNT, AUTOMATED 211 10^3/uL (150-450); RED BLOOD COUNT 4.18 10^6/uL (4.00-5.40); WHITE BLOOD COUNT 5.8 10^3/uL (4.0-10.0)
[2022-07-19 18:10] LABS: ALBUMIN 3.7 GM/DL (3.2-5.2); ALT/SGPT 16 U/L (12-78); BILIRUBIN,TOTAL 0.6 MG/DL (0.2-1.0); BLOOD UREA NITROGEN 21 MG/DL (7-18); CALCIUM LEVEL 9.1 MG/DL (8.5-10.1); CARBON DIOXIDE LEVEL 25 MEQ/L (21-32); CHLORIDE LEVEL 109 MEQ/L (98-107); CREATININE FOR GFR 0.84 MG/DL (0.55-1.30); GLOMERULAR FILTRATION RATE > 60.0 (>60); GLUCOSE, FASTING 90 MG/DL (70-100); POTASSIUM SERUM 4.1 MEQ/L (3.5-5.1); SODIUM LEVEL 141 MEQ/L (136-145); TOTAL PROTEIN 7.1 GM/DL (6.4-8.2)
== END ==
LOC: M LAB 16:15
PROVIDERS: ATTEND Physician Assistant
DX: K21.9 Gastro-esophageal reflux disease without esophagitis (principal)

== ENCOUNTER → 2022-07-28 | Outpatient (REF) | LOC: M LABSMTC 11:23 | PROVIDERS: ATTEND Family Medicine | DX: Z20.822 Contact with and (suspected) exposure to COVID-19 (principal) ==

== ENCOUNTER → 2022-09-15 | Outpatient (REF) ==
[2022-09-15 16:56] LABS: RSV AMPLIFICATION NEGATIVE (NEGATIVE)
== END ==
LOC: M EMP 15:11
PROVIDERS: ATTEND Family Medicine
DX: Z20.818 Contact with and (suspected) exposure to other bacterial communicable diseases (principal)

== ENCOUNTER → 2022-09-20 | Outpatient (REF) ==
[2022-09-20 13:21] LABS: RSV AMPLIFICATION NEGATIVE (NEGATIVE)
== END ==
LOC: M LABSMTC 11:36
PROVIDERS: ATTEND Family Medicine
DX: Z20.818 Contact with and (suspected) exposure to other bacterial communicable diseases (principal)

== ENCOUNTER → 2022-10-06 | Outpatient (CLI) | payer BC ==
[2022-10-06 16:55] LABS: HEMATOCRIT 36.2 % (36.0-47.0); HEMOGLOBIN 11.4 g/dl (12.0-15.5); MEAN CORPUSCULAR HEMOGLOBIN 27.4 pg (27.0-33.0); MEAN CORPUSCULAR HGB CONC 31.5 g/dl (32.0-36.5); PLATELET COUNT, AUTOMATED 230 10^3/uL (150-450); RED BLOOD COUNT 4.16 10^6/uL (4.00-5.40); WHITE BLOOD COUNT 7.7 10^3/uL (4.0-10.0)
[2022-10-06 17:50] LABS: HIV 1&2 SCREEN CENTAUR NEGATIVE (NEGATIVE)
[2022-10-06 17:58] LABS: HEPATITIS C VIRUS ABY INDEX 0.1 INDEX (<0.8)
[2022-10-06 18:29] LABS: GC DNA AMPLIFICATION NEGATIVE (NEGATIVE)
== END ==
LOC: M LAB 15:43
PROVIDERS: ATTEND Advanced Practice Midwife
DX: O99.341 Other mental disorders complicating pregnancy, first trimester (principal); Z3A.00 Weeks of gestation of pregnancy not specified

== ENCOUNTER → 2022-10-11 | Outpatient (REF) | payer BC | LOC: M PLALAB 10:05 | PROVIDERS: ATTEND Advanced Practice Midwife | DX: Z53.9 Procedure and treatment not carried out, unspecified reason (principal) ==

== ENCOUNTER → 2022-10-11 | Outpatient (CLI) | payer BC ==
[2022-10-11 15:01] LABS: APPEARANCE, URINE MANUAL CLEAR (CLEAR); BILIRUBIN, URINE MANUAL NEGATIVE (NEGATIVE); COLOR, URINE MANUAL YELLOW (YELLOW); GLUCOSE, URINE (UA) MANUAL NEGATIVE (NEGATIVE); KETONE, URINE MANUAL NEGATIVE (NEGATIVE); LEUKOCYTE ESTERASE, URINE MAN POSITIVE (NEGATIVE); NITRITE, URINE MANUAL NEGATIVE (NEGATIVE); PROTEIN, URINE MANUAL NEGATIVE (NEGATIVE); SPECIFIC GRAVITY,URINE MANUAL 1.025 (1.002-1.035); UROBILINOGEN, URINE MANUAL NORMAL (NORMAL)
[2022-10-11 15:02] LABS: BLOOD URINE MANUAL NEGATIVE (NEGATIVE)
[2022-10-11 15:33] LABS: RBC, URINE NONE SEEN /hpf (0-3); WBC, URINE 15-20 /hpf (0-3)
[2022-10-11 15:34] LABS: BACTERIA, URINE MOD AMOUNT; MUCUS, URINE MOD AMOUNT (NEGATIVE); SQUAMOUS EPITHELIAL CELL URINE MOD AMOUNT /hpf (SMALL AMT)
== END ==
LOC: M LAB 13:52
PROVIDERS: ATTEND Advanced Practice Midwife
DX: O26.892 Other specified pregnancy related conditions, second trimester (principal); Z36.89 Encounter for other specified antenatal screening; Z3A.00 Weeks of gestation of pregnancy not specified

== ENCOUNTER → 2022-10-27 | Outpatient (REF) | payer BC | LOC: M PLALAB 15:16 | PROVIDERS: ATTEND Advanced Practice Midwife | DX: Z12.4 Encounter for screening for malignant neoplasm of cervix (principal); R87.610 Atypical squamous cells of undetermined significance on cytologic smear of cervix (ASC-US) | CPT/HCPCS: 87624; G0123 ==

== ENCOUNTER 2022-11-06 19:36 | Emergency (ER) | payer OTHER, BC ==
[~2022-11-06] VITALS: Ht 167.6 cm; Wt 68.2 kg
[2022-11-06 20:38] LABS: BASO # 0.1 10^3/uL (0.0-0.2); BASO % 0.7 % (0.0-1.0); EOS # 0.1 10^3/uL (0.0-0.5); EOS % 1.2 % (0.0-3.0); HEMATOCRIT 33.8 % (36.0-47.0); HEMOGLOBIN 10.9 g/dl (12.0-15.5); LYMPH # 2.2 10^3/uL (1.5-5.0); LYMPH % 27.6 % (24.0-44.0); MEAN CORPUSCULAR HEMOGLOBIN 27.9 pg (27.0-33.0); MEAN CORPUSCULAR HGB CONC 32.2 g/dl (32.0-36.5); MEAN CORPUSCULAR VOLUME 86.4 fl (80.0-96.0); MONO # 0.5 10^3/uL (0.0-0.8); MONO % 5.5 % (2.0-8.0); NEUTROPHILS # 5.3 10^3/uL (1.5-8.5); NEUTROPHILS % 64.6 % (36.0-66.0); PLATELET COUNT, AUTOMATED 193 10^3/uL (150-450); RED BLOOD COUNT 3.91 10^6/uL (4.00-5.40); WHITE BLOOD COUNT 8.1 10^3/uL (4.0-10.0)
[2022-11-06 21:17] LABS: ALBUMIN 3.5 G/DL (3.2-5.2); ALKALINE PHOSPHATASE 67 U/L (46-116); ALT/SGPT 10 U/L (7.0-40); AST/SGOT < 8 U/L (<34); BILIRUBIN,TOTAL 0.6 MG/DL (0.3-1.2); BLOOD UREA NITROGEN 14 MG/DL (9-23); CALCIUM LEVEL 8.6 MG/DL (8.5-10.1); CARBON DIOXIDE LEVEL 22 MMOL/L (20-31); CHLORIDE LEVEL 107 MMOL/L (98-107); CREATININE FOR GFR 0.61 MG/DL (0.55-1.30); GLOMERULAR FILTRATION RATE > 60.0 (>60); GLUCOSE, FASTING 94 MG/DL (60-100); POTASSIUM SERUM 3.9 MMOL/L (3.5-5.1); SODIUM LEVEL 137 MMOL/L (136-145); TOTAL PROTEIN 6.8 G/DL (5.7-8.2)
[2022-11-06 21:31] LABS: HEPATITIS B SURFACE ANTIGEN NEGATIVE (NEGATIVE)
[2022-11-06 21:44] LABS: HIV SCREEN CENTAUR EXPOSED NEGATIVE (NEGATIVE)
[2022-11-06 21:51] LABS: HEPATITIS C VIRUS ABY INDEX < 0.0 INDEX (<0.8)
[2022-11-06 22:24] LABS: HEPATITIS B SURFACE ANTIBODY POSITIVE (POSITIVE)
[2022-11-06 22:45] VITALS: BP 112/56
== END 2022-11-06 22:47 | disposition home or self-care (01) ==
LOC: M ED 19:36
DX: Z77.21 Contact with and (suspected) exposure to potentially hazardous body fluids (principal); Y99.0 Civilian activity done for income or pay; Z79.83 Long term (current) use of bisphosphonates; Z79.810 Long term (current) use of selective estrogen receptor modulators (SERMs); Z79.899 Other long term (current) drug therapy

== ENCOUNTER → 2022-12-23 | Outpatient (CLI) | payer BC | LOC: M WHC 10:10 | PROVIDERS: ATTEND Advanced Practice Midwife | DX: O99.342 Other mental disorders complicating pregnancy, second trimester (principal); Z3A.22 22 weeks gestation of pregnancy ==

== ENCOUNTER → 2023-01-26 | Outpatient (CLI) | payer BC ==
[~2023-01-26] MED LIST changes: +ETON1VAG7; -NUVAMIS2
[2023-01-26 13:24] LABS: HEMATOCRIT 32.2 % (36.0-47.0); HEMOGLOBIN 9.7 g/dl (12.0-15.5); MEAN CORPUSCULAR HEMOGLOBIN 26.6 pg (27.0-33.0); MEAN CORPUSCULAR HGB CONC 30.1 g/dl (32.0-36.5); MEAN CORPUSCULAR VOLUME 88.2 fl (80.0-96.0); PLATELET COUNT, AUTOMATED 167 10^3/uL (150-450); RED BLOOD COUNT 3.65 10^6/uL (4.00-5.40); WHITE BLOOD COUNT 9.9 10^3/uL (4.0-10.0)
== END ==
LOC: M PLALAB 10:23
PROVIDERS: ATTEND Advanced Practice Midwife
DX: O99.342 Other mental disorders complicating pregnancy, second trimester (principal); Z3A.00 Weeks of gestation of pregnancy not specified

== ENCOUNTER 2023-02-27 09:48 | Outpatient (CLI) | payer BC ==
[~2023-02-27] VITALS: Ht 167.6 cm; Wt 70.0 kg
[2023-02-27 09:50] VITALS: BP 121/58
[2023-02-27] MEDS ORDERED: FERRIC CARBOXYMALTOSE INJ 750 MG in NS 250 ML IV ONE ×2 (10:00→10:05)
[2023-02-27] MEDS ORDERED: FERRIC CARBOXYMALTOSE INJ 750 MG in NS 250 ML (>50kg) IV ONE ×3 (10:10)
[2023-02-27 11:25] VITALS: BP 111/57
== END 2023-02-27 11:40 ==
LOC: M INFU 09:48
PROVIDERS: ATTEND Advanced Practice Midwife
DX: O99.013 Anemia complicating pregnancy, third trimester (principal)
CPT/HCPCS: 96365; J1439

== ENCOUNTER 2023-03-09 07:48 | Outpatient (CLI) | payer BC ==
[~2023-03-09] VITALS: Ht 167.6 cm; Wt 69.0 kg
[2023-03-09] MEDS ORDERED: FERRIC CARBOXYMALTOSE INJ 750 MG in NS 250 ML (>50kg) IV ONE ×3 (11:30)
[2023-03-09 12:36] VITALS: BP 121/57; O2SAT 98
[2023-03-09 13:18] VITALS: BP 112/59; O2SAT 100
== END 2023-03-09 13:10 | disposition home or self-care (01) ==
LOC: M INFU 07:48
PROVIDERS: ATTEND Advanced Practice Midwife
DX: O99.013 Anemia complicating pregnancy, third trimester (principal); Z3A.00 Weeks of gestation of pregnancy not specified
CPT/HCPCS: 96365; J1439

== ENCOUNTER → 2023-03-21 | Outpatient (CLI) | payer BC ==
[2023-03-21 15:44] LABS: HEMATOCRIT 37.7 % (36.0-47.0); HEMOGLOBIN 11.8 g/dl (12.0-15.5); MEAN CORPUSCULAR HEMOGLOBIN 27.6 pg (27.0-33.0); MEAN CORPUSCULAR HGB CONC 31.3 g/dl (32.0-36.5); MEAN CORPUSCULAR VOLUME 88.3 fl (80.0-96.0); PLATELET COUNT, AUTOMATED 152 10^3/uL (150-450); RED BLOOD COUNT 4.27 10^6/uL (4.00-5.40); WHITE BLOOD COUNT 10.3 10^3/uL (4.0-10.0)
== END ==
LOC: M PLALAB 13:47
PROVIDERS: ATTEND Specialist
DX: Z34.83 Encounter for supervision of other normal pregnancy, third trimester (principal)

== ENCOUNTER → 2023-03-30 | Outpatient (REF) | payer BC | LOC: M PLALAB 11:01 | PROVIDERS: ATTEND Advanced Practice Midwife | DX: O99.013 Anemia complicating pregnancy, third trimester (principal) ==

== ENCOUNTER → 2023-11-13 | Outpatient (REF) ==
[~2023-11-13] MED LIST changes: -GABA-283; +GABA-284
== END ==
LOC: M EMP 09:46
PROVIDERS: ATTEND Family Medicine
DX: Z20.828 Contact with and (suspected) exposure to other viral communicable diseases (principal)

== ENCOUNTER 2023-11-24 19:40 | Emergency (ER) | payer BC ==
[~2023-11-24] VITALS: Ht 172.7 cm; Wt 65.9 kg
[2023-11-24 19:41] VITALS: BP 117/64; TEMP 97.8; O2SAT 96
[2023-11-24] MEDS ORDERED: SERT50TA29 (19:51)
== END 2023-11-24 20:29 | disposition home or self-care (01) ==
LOC: M ED 19:40
DX: S61.230A Puncture wound without foreign body of right index finger without damage to nail, initial encounter (principal); W46.0XXA Contact with hypodermic needle, initial encounter; Y92.89 Other specified places as the place of occurrence of the external cause; Y93.F9 Activity, other caregiving; Y99.0 Civilian activity done for income or pay

== ENCOUNTER → 2024-05-08 | Outpatient (CLI) | payer BC ==
[~2024-05-08] MED LIST changes: +ONDA-282 PO; -ONDA4TAB6 PO; +SERT50TA29 PO
[2024-05-08 18:57] LABS: HEMATOCRIT 38.4 % (36.0-47.0); HEMOGLOBIN 12.9 g/dl (12.0-15.5); MEAN CORPUSCULAR HEMOGLOBIN 32.3 pg (27.0-33.0); MEAN CORPUSCULAR HGB CONC 33.6 g/dl (32.0-36.5); MEAN CORPUSCULAR VOLUME 96.2 fl (80.0-96.0); PLATELET COUNT, AUTOMATED 205 10^3/uL (150-450); RED BLOOD COUNT 3.99 10^6/uL (4.00-5.40); WHITE BLOOD COUNT 9.1 10^3/uL (4.0-10.0)
[2024-05-08 19:57] LABS: HIV 1&2 SCREEN NEGATIVE (NEGATIVE)
[2024-05-08 20:05] LABS: HEPATITIS C VIRUS ABY INDEX 0.05 INDEX (<0.8)
[2024-05-09 13:28] LABS: GC DNA AMPLIFICATION NEGATIVE (NEGATIVE)
== END ==
LOC: M PLALAB 15:31
PROVIDERS: ATTEND Advanced Practice Midwife
DX: O99.341 Other mental disorders complicating pregnancy, first trimester (principal); Z3A.00 Weeks of gestation of pregnancy not specified

== ENCOUNTER → 2024-07-19 | Outpatient (CLI) | payer BC | LOC: M WHC 14:16 | PROVIDERS: ATTEND Advanced Practice Midwife | DX: Z34.82 Encounter for supervision of other normal pregnancy, second trimester (principal) ==

== ENCOUNTER → 2024-09-11 | Outpatient (CLI) | payer BC ==
[2024-09-11 18:11] LABS: HEMATOCRIT 36.5 % (36.0-47.0); HEMOGLOBIN 12.1 g/dl (12.0-15.5); MEAN CORPUSCULAR HEMOGLOBIN 32.3 pg (27.0-33.0); MEAN CORPUSCULAR HGB CONC 33.2 g/dl (32.0-36.5); MEAN CORPUSCULAR VOLUME 97.3 fl (80.0-96.0); PLATELET COUNT, AUTOMATED 169 10^3/uL (150-450); RED BLOOD COUNT 3.75 10^6/uL (4.00-5.40); WHITE BLOOD COUNT 10.7 10^3/uL (4.0-10.0)
[2024-09-11 18:30] LABS: GLUCOSE CHALLENGE TEST 1 HOUR 150 MG/DL (LESS THAN 140)
[2024-09-11 19:00] LABS: HIV 1&2 SCREEN NEGATIVE (NEGATIVE)
[2024-09-11 19:08] LABS: HEPATITIS C VIRUS ABY INDEX < 0.02 INDEX (<0.8)
== END ==
LOC: M PLALAB 15:23
PROVIDERS: ATTEND Advanced Practice Midwife
DX: Z34.82 Encounter for supervision of other normal pregnancy, second trimester (principal)

== ENCOUNTER → 2024-09-11 | Outpatient (CLI) | payer BC | LOC: M WHC 15:16 | PROVIDERS: ATTEND Advanced Practice Midwife | DX: Z34.82 Encounter for supervision of other normal pregnancy, second trimester (principal) ==

== ENCOUNTER → 2024-09-27 | Outpatient (CLI) | payer BC | LOC: M LAB 07:37 | PROVIDERS: ATTEND Advanced Practice Midwife | DX: O99.810 Abnormal glucose complicating pregnancy (principal) ==

== ENCOUNTER → 2024-11-08 | Outpatient (REF) | payer BC | LOC: M SFHCWAGY 09:48 | PROVIDERS: ATTEND Specialist | DX: Z36.85 Encounter for antenatal screening for Streptococcus B (principal); Z3A.36 36 weeks gestation of pregnancy ==

== ENCOUNTER 2024-11-21 10:12 | Inpatient (IN) | payer BC ==
[2024-11-21] VITALS (24 sets, daily range): BP systolic 109–142; BP diastolic 57–94; O2SAT 98–100
[~2024-11-21] VITALS: Ht 167.6 cm; Wt 76.4 kg
[2024-11-21] MEDS ORDERED: TRANEXAMIC ACID INJection 1,000 MG in NS 100 ML IV PRN (10:20)
[2024-11-21] MEDS ORDERED: LIDOCAINE 1% MDV 20ML VIAL INFIL PRN (10:20)
[2024-11-21] MEDS ORDERED: OXYTOCIN INJ 10UNITS/ML 1ML VIAL IM PRN (10:20)
[2024-11-21] MEDS ORDERED: CARBOPROST TROMETHAMINE 250 MCG/ML AMP IM PRN (10:20)
[2024-11-21] MEDS: PENICILLIN G POTASSIUM 5 MU IV 5 MU in DEXTROSE 5% (D5W) MINI-BAG PLU 100 ML IV STA (10:46)
[2024-11-21] MEDS: LACTATED RINGER'S 1000 ML IV STA (10:46)
[2024-11-21] MEDS ORDERED: AMOX500C PO (11:04)
[2024-11-21] MEDS ORDERED: SERT-141 PO (11:04)
[2024-11-21] MEDS ORDERED: PRENTAB9 PO (11:04)
[2024-11-21] MEDS ORDERED: HOME MED LIST COMPLETE! XX SCH (11:05)
[2024-11-21 11:09] LABS: HEMATOCRIT 38.7 % (36.0-47.0); MEAN CORPUSCULAR HEMOGLOBIN 30.9 pg (27.0-33.0); MEAN CORPUSCULAR HGB CONC 33.6 g/dl (32.0-36.5); MEAN CORPUSCULAR VOLUME 91.9 fl (80.0-96.0); PLATELET COUNT, AUTOMATED 249 10^3/uL (150-450); RED BLOOD COUNT 4.21 10^6/uL (4.00-5.40); WHITE BLOOD COUNT 12.1 10^3/uL (4.0-10.0)
[2024-11-21] MEDS ORDERED: FENTANYL 2MCG/ML ROPIVACAINE 0.2% IN 0.9% NACL 100ML IVBAG As Ordered ONE (11:27)
[2024-11-21] MEDS ORDERED: ONDANSETRON 4MG 2ML VIAL IV PRN (11:30)
[2024-11-21] MEDS ORDERED: ePHEDrine SULFATE 25 MG/5 ML(5MG/ML) SYRINGE IVP PRN (11:30)
[2024-11-21] MEDS ORDERED: NALOXONE INJ 0.4MG/1ML VIAL IV PRN (11:30)
[2024-11-21] MEDS ORDERED: LR 500 ML IV PRN (11:30)
[2024-11-21] MEDS ORDERED: EPIDURAL/PCA KEYS XX PRN (11:30)
[2024-11-21] MEDS ORDERED: diphenhydrAMINE 50MG/ML VIAL IV PRN (11:30)
[2024-11-21 12:15] LABS: HIV 1&2 SCREEN NEGATIVE (NEGATIVE)
[2024-11-21 12:23] LABS: HEPATITIS C VIRUS ABY INDEX 0.11 INDEX (<0.8)
[2024-11-21] MEDS: LR 1,000 ML IV SCH (12:33)
[2024-11-21] MEDS: FENTANYL/ROPIVACAINE/NACL BAG 100 ML EPIDURAL SCH (12:34)
[2024-11-21] MEDS: METHYLERGONOVINE MALEATE 0.2MG/ML 1ML VIAL IM PRN (13:23)
[2024-11-21] MEDS ORDERED: ACETAMINOPHEN 500 MG TAB PO PRN (13:35)
[2024-11-21] MEDS ORDERED: ANUSOL HC CREAM 30GM TOP PRN (13:35)
[2024-11-21] MEDS ORDERED: IBUPROFEN 800 MG TAB PO PRN (13:35)
[2024-11-21] MEDS ORDERED: DOCUSATE SODIUM 100MG CAPSULE PO PRN (13:35)
[2024-11-21] MEDS ORDERED: ACETAMINOPHEN 325 MG TAB PO PRN (13:35)
[2024-11-21] MEDS ORDERED: MOM 30ML SUSPENSION UDC PO PRN (13:35)
[2024-11-21] MEDS ORDERED: RHOGAM 300MCG (1500IU) INJ IM SCH (13:35)
[2024-11-21] MEDS ORDERED: DIBUCAINE 1% OINTMENT 30GM TOP PRN (13:35)
[2024-11-21] MEDS: OXYTOCIN DRIP 30 UNITS in IV 1 EA IV PRN (13:43)
[2024-11-21] MEDS ORDERED: PEN G POT 3,000,000 UNIT/50 ML 3,000,000 UNIT in IV 1 EA IV SCH (15:00)
[2024-11-21] MEDS: SERTRALINE HCL 50 MG TAB PO SCH (21:20)
[2024-11-21] MEDS: OMEPRAZOLE 20MG CAP PO SCH (21:20)
[2024-11-22] MEDS: IBUPROFEN 600MG TAB PO PRN (00:27)
[2024-11-22 06:00] VITALS: BP 109/61; O2SAT 100
[2024-11-22] MEDS: PRENATAL VITAMINS CHEWABLE TABLET PO SCH (09:00)
[2024-11-23] MEDS ORDERED: MEASLES,MUMPS,RUBELLA VACCINE INJ (MMR-II) SC.IMMUN ONE (09:00)
== END 2024-11-22 17:17 | disposition home or self-care (01) | DRG 560 ==
LOC: M LDI 10:12 → M OBS 15:45
PROVIDERS: ADMIT Advanced Practice Midwife; ATTEND Advanced Practice Midwife
PROC: 10E0XZZ Delivery of Products of Conception, External Approach (ICD-10-PCS; principal; 2024-11-21)
DX: O69.82X0 Labor and delivery complicated by other cord entanglement, without compression, not applicable or unspecified (principal); Z37.0 Single live birth; Z3A.38 38 weeks gestation of pregnancy; O99.824 Streptococcus B carrier state complicating childbirth